=== PATIENT | female | born 1980 | race Caucasian/White ===

== ENCOUNTER 2018-12-28 12:06 | Emergency (ER) | payer OTHER ==
[2018-12-28 13:38] VITALS: BP 104/72
--- NOTE | 2018-12-28 14:50 | UC ---
Throat Pain/Nasal [place] HPI - HPI Summary HPI Summary: Patient is a 38yo female presenting with nasal congestion and sinus tenderness x6 days. States is has been worsening. Patient notes ear pressure, PND, mild productive cough. Notes mild SOB. Denies wheezing or difficulty breathing. Denies fever, chills, n/v/d. States she has tried otc cough and cold medications without relief. Patient noted history of recurrent sinusitis. - History of Current Complaint Chief Complaint: UCRespiratory Stated Complaint: SORETHROAT/SINUS Hx Last Menstrual Period: 12/22/18 Onset/Duration: Gradual Onset, Lasting Days Severity: Mild Pain Intensity: 2 Pain Scale Used: 0-10 Numeric - Allergies/Home Medications Allergies/Adverse Reactions: Allergies Allergy/AdvReac Type Severity Reaction Status Date / Time No Known Allergies Allergy Verified 12/28/18 13:21 Home Medications: Home Medications Ascorbic Acid TAB* [Vitamin C TAB*] 1,000 mg PO DAILY 12/28/18 [History Confirmed 12/28/18] Echinacea 3 tab PO DAILY 12/28/18 [History Confirmed 12/28/18] Levothyroxine Sodium [Synthroid] 112 mcg PO QAM 12/28/18 [History Confirmed ] Mv-Min/Vit C/Glut/Lysine/Hb124 [Airborne] 1 tab PO DAILY PRN 12/28/18 [History Confirmed 12/28/18] Otc Decongestant Multi Sx Tab 2 tab PO TID PRN 12/28/18 [History Confirmed 12/28] Sertraline* [Zoloft*] 50 mg PO DAILY 12/28/18 [History Confirmed 12/28/18] Zinc 100 mg PO DAILY 12/28/18 [History Confirmed 12/28/18] PMH/Surg Hx/FS Hx/Imm Hx Previously Healthy: Yes - Surgical History Surgical History: Yes Surgery Procedure, Year, and Place: low back 08/2017 - Family History Known Family History: Positive: Non-Contributory - Social History Alcohol Use: None Substance Use Type: None Smoking Status (MU): Former Smoker Review of Systems All Other Systems Reviewed And Are Negative: Yes Constitutional: Positive: Negative. Negative: Fever, Chills Eyes: Positive: Negative ENT: Positive: Sore Throat - that has resolved, Ear Ache - ear pressure bilaterally, Sinus Congestion, Sinus Pain/Tenderness. Negative: Nasal Discharge Respiratory: Positive: Shortness Of Breath, Cough Cardiovascular: Positive: Negative. Negative: Palpitations, Chest Pain Gastrointestinal: Positive: Negative. Negative: Abdominal Pain, Vomiting, Diarrhea, Nausea Musculoskeletal: Positive: Negative Neurological: Positive: Headache Physical Exam Triage Information Reviewed: Yes Appearance: Well-Appearing, No Pain Distress, Well-Nourished Vital Signs: Initial Vital Signs Temp 99.5 F 12/28/18 13:26 Pulse 56 12/28/18 13:26 Resp 18 12/28/18 13:26 BP 104/72 12/28/18 13:26 Pulse Ox 100 12/28/18 13:26 Vital Signs Reviewed: Yes Eyes: Positive: Conjunctiva Clear ENT Exam: Normal ENT: Positive: Hearing grossly normal, Pharynx normal, Nasal congestion, Nasal drainage - PND noted, TMs normal, Sinus tenderness, Uvula midline. Negative: Pharyngeal erythema, TM bulging, TM dull, TM red, Tonsillar swelling, Tonsillar exudate Neck exam: Normal Neck: Positive: Supple, Nontender, No Lymphadenopathy Respiratory Exam: Normal Respiratory: Positive: Lungs clear, Normal breath sounds, No respiratory distress, No accessory muscle use. Negative: Crackles, Rhonchi, Stridor, Wheezing Cardiovascular Exam: Normal Cardiovascular: Positive: RRR Neurological: Positive: Alert Psychological: Positive: Age Appropriate Behavior Throat Pain/Nasal Course/Dx - Course Course Of Treatment: Discussed with patient to take Augmentin as prescribed for treatment of bacterial sinusitis. Instructed her that she may to continue with nasal spray and Mucinex. Instructed her to return or follow-up with [facility] if symptoms worsen including difficulty breathing, fever, chills, nausea , vomiting. Patient voiced understanding and agreed to treatment plan. - Differential Dx/Diagnosis Provider Diagnosis: Sinusitis, acute Discharge ED - Sign-Out/Discharge Documenting (check all that apply): Patient Departure All imaging exams completed and their final reports reviewed: No Studies - Discharge Plan Condition: Stable Disposition: HOME Prescriptions: Amoxicillin/Clavulanate TAB* [Augmentin TAB 875*] 875 mg PO BID #14 tab Patient Education Materials: Rhinosinusitis (ED) Referrals: [facility] [Outside] - If Needed Additional Instructions: As discussed, take Augmentin for the treatment of your bacterial sinusitis. You may also take Mucinex as directed to help reduce mucus production. You may use otc nasal spray as directed for symptomatic relief. You may take ibuprofen as directed for pain relief. Get plenty of rest and fluids. Return or follow up with the [facility] if your symptoms worsen or do not resolve within 7 days. - Billing Disposition and Condition Condition: STABLE Disposition: Home
== END 2018-12-28 14:55 | disposition home or self-care (01) ==
LOC: UCCORT 12:06
DX: J01.90 Acute sinusitis, unspecified (principal); R06.02 Shortness of breath; Z87.891 Personal history of nicotine dependence
CPT/HCPCS: 99202; G0463